=== PATIENT | male | born 1985 | race Caucasian/White ===

== ENCOUNTER 2019-06-27 22:49 | Emergency (ER) | payer SELFPAY ==
[~2019-06-27] VITALS: Ht 170.2 cm; Wt 72.6 kg
[2019-06-27 22:55] VITALS: BP_SYST 130
--- NOTE | 2019-06-27 22:55 | NUR ---
Patient triaged and placed in waiting room. VSS and patient appears in no acute distress at this time. Accompanied by FAM MEMBER, awaiting available bed, and MD notified of need for MSE.
--- NOTE | 2019-06-28 01:00 | NUR ---
call pt name in the wr.no answer.
--- NOTE | 2019-06-28 01:05 | NUR ---
call pt name in the wr.no answer.
--- NOTE | 2019-06-28 01:10 | NUR ---
call pt name in the wr.no answer.
== END 2019-06-28 01:10 | disposition left against medical advice (07) ==
LOC: SED 22:49
DX: R10.9 Unspecified abdominal pain (principal); R42 Dizziness and giddiness; R11.10 Vomiting, unspecified; Z53.21 Procedure and treatment not carried out due to patient leaving prior to being seen by health care provider